=== PATIENT | male | born 1990 | race Caucasian/White ===

== ENCOUNTER 2024-06-09 17:30 | Emergency (ER) | payer SELFPAY ==
[~2024-06-09] VITALS: Ht 182.9 cm; Wt 117.9 kg
[2024-06-09 17:41] VITALS: BP 153/86; PULSE 97; RESP 16; TEMP 98.1; O2SAT 97
== END 2024-06-09 18:00 ==
LOC: MED 17:30
DX: M79.645 Pain in left finger(s)
CPT/HCPCS: 99283